=== PATIENT | male | born 1950 | race Caucasian/White ===

== ENCOUNTER 2017-09-21 22:27 | Inpatient (IN) | payer MEDICARE, OTHER ==
[~2017-09-21] VITALS: Ht 180.3 cm; Wt 89.4 kg
[2017-09-21] MEDS ORDERED: CARV6.252 PO (22:43)
[2017-09-21] MEDS ORDERED: METF10002 PO (22:43)
[2017-09-21] MEDS ORDERED: MAG30ORA PO (22:43)
[2017-09-21] MEDS ORDERED: MAGN400O6 PO (22:43)
[2017-09-21] MEDS ORDERED: WARF4TAB6 PO (22:43)
[2017-09-21] MEDS ORDERED: ACET-2154 PO (22:43)
[2017-09-21] MEDS ORDERED: PARO10TA86 PO (22:43)
[2017-09-21] MEDS ORDERED: RISP2TAB23 PO (22:43)
[2017-09-21] MEDS ORDERED: HYDR-3326 PO (22:43)
[2017-09-21] MEDS ORDERED: FAMO20TA8 PO (22:43)
[2017-09-21] MEDS ORDERED: PIOG15TA8 PO (22:43)
[2017-09-21] MEDS ORDERED: HYDROCODONE/APAP 10-325 MG TABLET PO ONE (23:15)
[2017-09-21] MEDS ORDERED: HYDROCODONE/APAP 10-325 MG TABLET ONE (23:42)
[2017-09-21 23:48] LABS: ACETAMINOPHEN 2.7 ug/mL (10-30); ALANINE AMINOTRANSFERASE 25 U/L (16-63); ALKALINE PHOSPHATASE 73 U/L (50-136); ASPARTATE AMINOTRANSFERASE 11 U/L (15-37); BILIRUBIN,DIRECT 0.1 mg/dL (0.0-0.2); BILIRUBIN,TOTAL 0.3 mg/dL (0.2-1.0); CARBON DIOXIDE 26 mmol/L (21-32); CHLORIDE 112 mmol/L (98-107); CREATININE 0.8 mg/dL (0.6-1.3); GLUCOSE 114 mg/dL (74-106); POTASSIUM 3.6 mmol/L (3.5-5.1); TOTAL PROTEIN, SERUM 6.8 g/dL (6.4-8.2); UREA NITROGEN, BLOOD 24 mg/dL (7-18)
[2017-09-22 00:17] LABS: BASOPHILS % (AUTO) 0.5 % (0.0-2.0); EOSINOPHILS # (AUTO) 0.2 K/uL (0.0-0.7); EOSINOPHILS % (AUTO) 2.8 % (0.0-7.0); HEMATOCRIT 41.1 % (40-50); LYMPHOCYTES # (AUTO) 2.4 K/UL (0.8-4.8); LYMPHOCYTES % (AUTO) 31.8 % (20.5-51.5); MEAN CORPUSCULAR HEMOGLOBIN 33.4 UUG (27.0-31.0); MEAN CORPUSCULAR HGB CONC 34 g/dL (32.0-37.0); MEAN CORPUSCULAR VOLUME 97.7 FL (82.0-92.0); MONOCYTES # (AUTO) 0.7 K/UL (0.1-1.30); NEUTROPHILS # (AUTO) 4.4 K/UL (1.8-8.9); NEUTROPHILS % (AUTO) 55.9 % (38.5-71.5); PLATELET COUNT (AUTO) 219 K/UL (150-450); RED BLOOD CELL COUNT(AUTO) 4.21 MIL/UL (4.7-6.1); WHITE BLOOD COUNT (AUTO) 7.7 K/UL (4.0-11.2)
[2017-09-22 00:30] LABS: ETHANOL < 3 MG/DL (0-0)
[2017-09-22 00:37] LABS: *BILIRUBIN,URIN 1+ (NEGATIVE); *BLOOD, URINE Trace-intact (NEGATIVE); *CLARITY,URINE CLEAR (CLEAR); *COLOR,URINE YELLOW (YELLOW); *KETONES,URINE 1+ (NEGATIVE); *PROTEIN,URINE 1+ (NEGATIVE); LEUKOCYTE ESTERASE ,URINE NEGATIVE (NEGATIVE); NITRITE, URINE NEGATIVE (NEGATIVE); PH,URINE 5.5 (5.0-8.0); UGLUCOSE NEGATIVE (NEGATIVE)
[2017-09-22 00:39] LABS: BACTERIA,URINE NONE SEEN /HPF (NONE SEEN); MUCUS,URINE MANY /LPF (0-FEW); SQUAMOUS EPITHELIAL CELL,UR NONE SEEN /HPF (NONE SEEN)
--- NOTE | 2017-09-22 01:30 | NUR ---
Pt. admitted to [facility], under care of Dr. CRONIN Belongs List completed
[2017-09-22] MEDS ORDERED: IV D5 1/2 NS 1000 ML 1,000 ML IV PRN (02:39)
[2017-09-22] MEDS ORDERED: MAG HYDROX/AL HYDROX/SIMETH 30 ML LIQUID UDC PO PRN ×2 (02:45→07:45)
[2017-09-22] MEDS ORDERED: MAGNESIUM HYDROXIDE 30 ML LIQUID UDC PO PRN ×2 (02:45)
[2017-09-22] MEDS ORDERED: ONDANSETRON 4 MG/2 ML VIAL IV PRN (02:45)
[2017-09-22] MEDS ORDERED: ZOLPIDEM 5 MG TABLET PO PRN (02:45)
[2017-09-22] MEDS ORDERED: Z GUARD REMEDY PASTE 57 GM TUBE TOP PRN (02:45)
[2017-09-22] MEDS ORDERED: DEXTROSE 50% 50 ML DISP.SYRIN IV PRN (02:45)
[2017-09-22 04:00] VITALS: BP 121/52
[2017-09-22] MEDS: HYDROCODONE/APAP 5-325MG TABLET PO PRN ×2 (06:05→11:11)
[2017-09-22] MEDS ORDERED: HYDROCODONE/APAP 5-325MG TABLET ONE (06:17)
--- NOTE | 2017-09-22 06:34 | NUR ---
Heplock inserted w/ [id number] on left wrist. IVF D5 1/2 NS started at rate 75 ml/hr.
--- NOTE | 2017-09-22 06:38 | NUR ---
Patient c/o lower back pain, 7/10 pain level. [place] 1 tab po was given. Patient tolerated.
[2017-09-22] MEDS: BLOOD SUGAR DIAGNOSTIC 1 EACH STRIP VI SCH ×4 (07:30→22:10)
--- NOTE | 2017-09-22 07:30 | NUR ---
Received report from night manager nurse. Patient in bed awake, no evidence of distress noted at this time. Bed in low position, side rails up x2.
[2017-09-22] MEDS: CARVEDILOL 6.25 MG TABLET PO SCH ×2 (08:00→17:03)
[2017-09-22] MEDS ORDERED: risperiDONE 2 MG TABLET PO SCH (09:00)
[2017-09-22] MEDS ORDERED: PAROXETINE HCL 10 MG TABLET PO SCH (09:00)
--- NOTE | 2017-09-22 09:00 | NUR ---
Patient found to have pulled out IV with blood dripping on the floor. Patient explained that he pulled it out to go to the bathroom. Reinserted new IV line.
[2017-09-22] MEDS: PIOGLITAZONE HCL 15 MG TABLET PO SCH (09:10)
[2017-09-22] MEDS: FAMOTIDINE 20 MG TABLET PO SCH (09:10)
[2017-09-22 09:55] LABS: *AMPHETAMINE, URINE NEGATIVE (NEGATIVE); *BARBITURATE, URINE NEGATIVE (NEGATIVE); *CANNABINOID, URINE NEGATIVE (NEGATIVE); *COCCAINE, URINE NEGATIVE (NEGATIVE); *OPIATE, URINE POSITIVE (NEGATIVE); *PHENCYCLIDINE SCREEN,URINE NEGATIVE (NEGATIVE)
[2017-09-22 11:01] VITALS: BP 133/89
[2017-09-22 11:59] LABS: ALANINE AMINOTRANSFERASE 23 U/L (16-63); ALKALINE PHOSPHATASE 71 U/L (50-136); ASPARTATE AMINOTRANSFERASE 10 U/L (15-37); BILIRUBIN,TOTAL 0.3 mg/dL (0.2-1.0); CARBON DIOXIDE 25 mmol/L (21-32); CHLORIDE 109 mmol/L (98-107); CREATININE 0.6 mg/dL (0.6-1.3); GLUCOSE 126 mg/dL (74-106); MAGNESIUM 1.6 mg/dL (1.8-2.4); PHOSPHOROUS 3.3 mg/dL (2.5-4.9); POTASSIUM 4.1 mmol/L (3.5-5.1); TOTAL PROTEIN, SERUM 6.6 g/dL (6.4-8.2); UREA NITROGEN, BLOOD 15 mg/dL (7-18)
--- NOTE | 2017-09-22 12:00 | NUR ---
Patient reported that he took the New IV out as the fluids were stopped. He thought that he did not need it anymore. It was explained to patient that the IV is to stay in during duration of the stay in the hospital until discharge even if there are no fluids at the time.
[2017-09-22 12:11] LABS: THYROID STIMULATING HORMONE 2.198 mIU/mL (0.358-3.740)
[2017-09-22 12:16] LABS: BASOPHILS % (AUTO) 0.6 % (0.0-2.0); EOSINOPHILS # (AUTO) 0.2 K/uL (0.0-0.7); EOSINOPHILS % (AUTO) 2.4 % (0.0-7.0); HEMATOCRIT 39.3 % (36.7-47.1); HEMOGLOBIN 13.7 g/dL (12.5-16.3); LYMPHOCYTES # (AUTO) 2.5 K/uL (20.0-40.0); LYMPHOCYTES % (AUTO) 31.8 % (20.5-51.5); MEAN CORPUSCULAR HEMOGLOBIN 34.2 uug (23.8-33.4); MEAN CORPUSCULAR HGB CONC 35 g/dL (32.5-36.3); MONOCYTES # (AUTO) 0.6 K/uL (2.0-10.0); NEUTROPHILS # (AUTO) 4.5 K/uL (1.8-8.9); NEUTROPHILS % (AUTO) 57.2 % (38.5-71.5); PLATELET COUNT (AUTO) 188 K/uL (152-348); RED BLOOD CELL COUNT(AUTO) 4.01 MIL/uL (4.06-5.63); WHITE BLOOD COUNT (AUTO) 7.8 K/uL (3.6-10.2)
[2017-09-22] MEDS ORDERED: MAGNESIUM SULFATE/D5W 100 ML IV SCH (12:30)
[2017-09-22 15:10] VITALS: BP 130/84
[2017-09-22 15:12] VITALS: BP 130/84
[2017-09-22] MEDS: NICOTINE 21 MG/24HR PATCH TD SCH (15:15)
--- NOTE | 2017-09-22 16:00 | NUR ---
agricultural technical officer stopped by the nursing desk to inform staff that he has brought a agricultural education teacher for his ankle tracker. Patient is on house arrest.
[2017-09-22] MEDS: IV 1/2NS 1000 ML 1,000 ML IV PRN (17:01)
[2017-09-22] MEDS: INSULIN REGULAR, HUMAN 300 UNIT/3 ML VIAL SQ PRN ×2 (17:19→22:18)
--- NOTE | 2017-09-22 18:16 | NUR ---
Patient has had two episodes of soiling himself and bedding. All bedding changed, cleaned and patient advised to wear an adult brief. No evidence of distress noted at this time. Bed in low position, side rails up x2.
[2017-09-22] MEDS: ACETAMINOPHEN 325 MG TABLET PO PRN (18:58)
--- NOTE | 2017-09-22 19:52 | NUR ---
PATIENT INTERMITTENTLY SLEEPING ON BED. EASILY AWAKE ON VERBAL STIMULI. NO DISTRESS NOTED. WILL CONTINUE TO MONITOR
[2017-09-22 20:00] VITALS: BP 141/73
[2017-09-22] MEDS: risperiDONE 1 MG/ML UDC PO SCH (22:10)
[2017-09-23] MEDS: IV 1/2NS 1000 ML 1,000 ML IV PRN ×2 (02:50→23:48)
[2017-09-23 04:49] VITALS: BP 118/63
[2017-09-23] MEDS: ACETAMINOPHEN 325 MG TABLET PO PRN ×3 (06:16→20:07)
[2017-09-23] MEDS: BLOOD SUGAR DIAGNOSTIC 1 EACH STRIP VI SCH ×5 (06:17→21:09)
[2017-09-23 06:45] LABS: BASOPHILS % (AUTO) 0.5 % (0.0-2.0); EOSINOPHILS # (AUTO) 0.2 K/uL (0.0-0.7); EOSINOPHILS % (AUTO) 3.1 % (0.0-7.0); HEMATOCRIT 41.3 % (36.7-47.1); LYMPHOCYTES # (AUTO) 2.3 K/uL (20.0-40.0); LYMPHOCYTES % (AUTO) 31.9 % (20.5-51.5); MEAN CORPUSCULAR HEMOGLOBIN 33.3 uug (23.8-33.4); MEAN CORPUSCULAR HGB CONC 34 g/dL (32.5-36.3); MEAN CORPUSCULAR VOLUME 98.1 fL (73.0-96.2); MONOCYTES # (AUTO) 0.6 K/uL (2.0-10.0); MONOCYTES % (AUTO) 8.3 % (0.0-11.0); NEUTROPHILS # (AUTO) 4.1 K/uL (1.8-8.9); NEUTROPHILS % (AUTO) 56.2 % (38.5-71.5); PLATELET COUNT (AUTO) 183 K/uL (152-348); RED BLOOD CELL COUNT(AUTO) 4.21 MIL/uL (4.06-5.63); WHITE BLOOD COUNT (AUTO) 7.3 K/uL (3.6-10.2)
--- NOTE | 2017-09-23 07:30 | NUR ---
Received report from chisel grinder nurse, patient in bed awake, no evidence of distress noted at this time. Bed in low position, side rails up x2.
[2017-09-23 08:07] LABS: ALANINE AMINOTRANSFERASE 24 U/L (16-63); ALKALINE PHOSPHATASE 63 U/L (50-136); AMYLASE 23 U/L (25-115); ASPARTATE AMINOTRANSFERASE 9 U/L (15-37); BILIRUBIN,TOTAL 0.4 mg/dL (0.2-1.0); CARBON DIOXIDE 24 mmol/L (21-32); CHLORIDE 108 mmol/L (98-107); CHOLESTEROL 138 mg/dL (<200); CREATININE 0.6 mg/dL (0.6-1.3); GLUCOSE 130 mg/dL (74-106); HDL CHOLESTEROL 30 mg/dL (40-60); MAGNESIUM 1.7 mg/dL (1.8-2.4); PHOSPHOROUS 3.2 mg/dL (2.5-4.9); POTASSIUM 3.7 mmol/L (3.5-5.1); TOTAL PROTEIN, SERUM 6.7 g/dL (6.4-8.2); TRIGLYCERIDES 109 MG/DL (30-150); UREA NITROGEN, BLOOD 10 mg/dL (7-18)
[2017-09-23] MEDS: NICOTINE 21 MG/24HR PATCH TD SCH (08:15)
[2017-09-23] MEDS: PIOGLITAZONE HCL 15 MG TABLET PO SCH (08:15)
[2017-09-23] MEDS: FAMOTIDINE 20 MG TABLET PO SCH (08:15)
[2017-09-23] MEDS: PAROXETINE HCL 20 MG TABLET PO SCH (08:15)
[2017-09-23] MEDS: CARVEDILOL 6.25 MG TABLET PO SCH ×2 (08:16→18:22)
[2017-09-23] MEDS: HYDROCODONE/APAP 5-325MG TABLET PO PRN (08:35)
[2017-09-23] MEDS: risperiDONE 1 MG/ML UDC PO SCH ×2 (08:35→20:06)
[2017-09-23 08:41] LABS: IRON, SERUM 77 ug/dL (50-175)
[2017-09-23] MEDS ORDERED: PAROXETINE HCL 10 MG TABLET PO SCH (09:00)
[2017-09-23 09:05] LABS: LIPASE 72 U/L (73-393)
[2017-09-23] MEDS ORDERED: MAGNESIUM SULFATE/D5W 100 ML IV SCH (10:45)
[2017-09-23 10:56] LABS: THYROID STIMULATING HORMONE 2.309 mIU/mL (0.358-3.740)
[2017-09-23] MEDS: FOLIC ACID 1 MG TABLET PO SCH (11:53)
[2017-09-23 11:54] VITALS: BP 113/72
[2017-09-23] MEDS: INSULIN REGULAR, HUMAN 300 UNIT/3 ML VIAL SQ PRN (12:36)
[2017-09-23] MEDS: CEFTRIAXONE 1 G in IV DEXTROSE 5% 50 ML IV SCH (15:00)
[2017-09-23 15:44] VITALS: BP 138/67
--- NOTE | 2017-09-23 18:48 | NUR ---
Notified that patient had taken out iv that was secured with a wrap and double tape. Slight bruising noted on left arm. No evidence of distress noted, bed in low position, side rails up x2. All needs met.
--- NOTE | 2017-09-23 19:00 | NUR ---
RECD PT IN BED, NO SSX OF DISTRESS NOTED, VERBALLY RESPONSIVE,IV SITE ON LEFT F/A INTACT W/ IV INFUSING WELL.
[2017-09-23 20:00] VITALS: BP 125/72
--- NOTE | 2017-09-23 20:07 | NUR ---
PT C/O GEN PAIN ,TYLENOL 650 MG GIVEN AND RELIEF AFFORDED, SLEPT ON AND OFF.VOIDED FREELY WELL USING URINAL.
[2017-09-24 05:14] VITALS: BP 120/72
[2017-09-24 05:18] VITALS: BP 120/72
[2017-09-24] MEDS: ACETAMINOPHEN 325 MG TABLET PO PRN (05:56)
--- NOTE | 2017-09-24 06:01 | NUR ---
HAD A QUIET NITE, SLEPT AT LONG INTERVALS.NO DIABETIC CRISIS NOTED.AFEBRILE THRU OUT THE SHIFT.
--- NOTE | 2017-09-24 07:25 | NUR ---
RECEIVED REPORT FROM INSURANCE DEFENSE ATTORNEY NURSE, PATIENT IN BED ASLEEP, NO EVIDENCE OF DISTRESS NOTED, BED IN LOW POSITION, SIDE RAILS UP X2.
[2017-09-24 08:04] LABS: ALANINE AMINOTRANSFERASE 22 U/L (16-63); ALKALINE PHOSPHATASE 71 U/L (50-136); ASPARTATE AMINOTRANSFERASE 11 U/L (15-37); BASOPHILS % (AUTO) 0.6 % (0.0-2.0); BILIRUBIN,TOTAL 0.5 mg/dL (0.2-1.0); CARBON DIOXIDE 24 mmol/L (21-32); CHLORIDE 107 mmol/L (98-107); CREATININE 0.5 mg/dL (0.6-1.3); EOSINOPHILS # (AUTO) 0.2 K/uL (0.0-0.7); EOSINOPHILS % (AUTO) 2.1 % (0.0-7.0); GLUCOSE 146 mg/dL (74-106); HEMATOCRIT 41.7 % (36.7-47.1); HEMOGLOBIN 14.6 g/dL (12.5-16.3); LYMPHOCYTES # (AUTO) 2.1 K/uL (20.0-40.0); LYMPHOCYTES % (AUTO) 25.2 % (20.5-51.5); MAGNESIUM 1.8 mg/dL (1.8-2.4); MEAN CORPUSCULAR HEMOGLOBIN 34.2 uug (23.8-33.4); MEAN CORPUSCULAR HGB CONC 35 g/dL (32.5-36.3); MEAN CORPUSCULAR VOLUME 97.7 fL (73.0-96.2); MONOCYTES # (AUTO) 0.7 K/uL (2.0-10.0); MONOCYTES % (AUTO) 7.8 % (0.0-11.0); NEUTROPHILS # (AUTO) 5.4 K/uL (1.8-8.9); NEUTROPHILS % (AUTO) 64.3 % (38.5-71.5); PHOSPHOROUS 2.9 mg/dL (2.5-4.9); PLATELET COUNT (AUTO) 192 K/uL (152-348); RED BLOOD CELL COUNT(AUTO) 4.27 MIL/uL (4.06-5.63); TOTAL PROTEIN, SERUM 6.8 g/dL (6.4-8.2); UREA NITROGEN, BLOOD 8 mg/dL (7-18); WHITE BLOOD COUNT (AUTO) 8.4 K/uL (3.6-10.2)
[2017-09-24] MEDS: FOLIC ACID 1 MG TABLET PO SCH (08:43)
[2017-09-24] MEDS: PAROXETINE HCL 20 MG TABLET PO SCH (08:43)
[2017-09-24] MEDS: FAMOTIDINE 20 MG TABLET PO SCH (08:43)
[2017-09-24] MEDS: PIOGLITAZONE HCL 15 MG TABLET PO SCH (08:43)
[2017-09-24] MEDS: risperiDONE 1 MG/ML UDC PO SCH ×2 (08:43→21:25)
[2017-09-24] MEDS: HYDROCODONE/APAP 5-325MG TABLET PO PRN (08:43)
[2017-09-24] MEDS: NICOTINE 21 MG/24HR PATCH TD SCH (08:44)
[2017-09-24] MEDS: CARVEDILOL 6.25 MG TABLET PO SCH ×2 (08:47→17:27)
[2017-09-24 11:06] VITALS: BP 118/68
[2017-09-24] MEDS: BLOOD SUGAR DIAGNOSTIC 1 EACH STRIP VI SCH ×3 (11:55→21:24)
[2017-09-24] MEDS: INSULIN REGULAR, HUMAN 300 UNIT/3 ML VIAL SQ PRN ×2 (12:45→21:22)
[2017-09-24] MEDS: CEFTRIAXONE 1 G in IV DEXTROSE 5% 50 ML IV SCH (15:14)
[2017-09-24] MEDS: IV 1/2NS 1000 ML 1,000 ML IV PRN (15:14)
[2017-09-24 15:58] VITALS: BP 123/71
--- NOTE | 2017-09-24 19:00 | NUR ---
PATIENT IN BED AWAKE, REPORTING BACK PAIN. BED IN LOW POSITION, SIDE RAILS UP X2. PATIENT TOLERATED SHOWER TODAY.
[2017-09-24 20:00] VITALS: BP 122/71
--- NOTE | 2017-09-24 23:00 | NUR ---
Endorsed patient from CIERRA Beck. Patient is asleep at the moment. No signs of distress noted. BRP. Room is kept clutter free. Bed is in low and locked position. Will continue to monitor.
[2017-09-25 04:51] VITALS: BP 115/73
--- NOTE | 2017-09-25 06:03 | NUR ---
No changes w/t shift. Patient slept t/o shift. No c/o back pain. All meds given as ordered. All needs met. Safety and comfort measures maintained t/o shift.
[2017-09-25] MEDS: IV 1/2NS 1000 ML 1,000 ML IV PRN (06:23)
[2017-09-25] MEDS: BLOOD SUGAR DIAGNOSTIC 1 EACH STRIP VI SCH ×2 (06:35→12:04)
[2017-09-25 07:16] LABS: BASOPHILS % (AUTO) 0.4 % (0.0-2.0); EOSINOPHILS # (AUTO) 0.2 K/uL (0.0-0.7); EOSINOPHILS % (AUTO) 2.7 % (0.0-7.0); HEMATOCRIT 42.5 % (40-50); HEMOGLOBIN 14.1 G/DL (14.0-18.0); LYMPHOCYTES # (AUTO) 2.2 K/UL (0.8-4.8); MEAN CORPUSCULAR HEMOGLOBIN 32.6 UUG (27.0-31.0); MEAN CORPUSCULAR HGB CONC 33 g/dL (32.0-37.0); MEAN CORPUSCULAR VOLUME 97.7 FL (82.0-92.0); MONOCYTES # (AUTO) 0.7 K/UL (0.1-1.30); NEUTROPHILS # (AUTO) 5.3 K/UL (1.8-8.9); NEUTROPHILS % (AUTO) 62.9 % (38.5-71.5); PLATELET COUNT (AUTO) 209 K/UL (150-450); RED BLOOD CELL COUNT(AUTO) 4.34 MIL/UL (4.7-6.1); WHITE BLOOD COUNT (AUTO) 8.4 K/UL (4.0-11.2)
--- NOTE | 2017-09-25 07:20 | NUR ---
RECEIVED REPORT FROM EXCELSIOR MACHINE FEEDER NURSE, PATIENT IN BED ASLEEP, NO EVIDENCE OF DISTRESS NOTED. BED IN LOW POSITION, SIDE RAILS UP X2.
[2017-09-25 07:27] LABS: ALANINE AMINOTRANSFERASE 23 U/L (16-63); ALKALINE PHOSPHATASE 71 U/L (50-136); ASPARTATE AMINOTRANSFERASE 11 U/L (15-37); BILIRUBIN,TOTAL 0.5 mg/dL (0.2-1.0); CARBON DIOXIDE 25 mmol/L (21-32); CHLORIDE 108 mmol/L (98-107); CREATININE 0.6 mg/dL (0.6-1.3); GLUCOSE 129 mg/dL (74-106); MAGNESIUM 1.7 mg/dL (1.8-2.4); PHOSPHOROUS 2.7 mg/dL (2.5-4.9); POTASSIUM 3.8 mmol/L (3.5-5.1); TOTAL PROTEIN, SERUM 6.8 g/dL (6.4-8.2); UREA NITROGEN, BLOOD 10 mg/dL (7-18)
[2017-09-25] MEDS: PAROXETINE HCL 20 MG TABLET PO SCH (08:23)
[2017-09-25] MEDS: FOLIC ACID 1 MG TABLET PO SCH (08:23)
[2017-09-25] MEDS: CARVEDILOL 6.25 MG TABLET PO SCH (08:23)
[2017-09-25] MEDS: PIOGLITAZONE HCL 15 MG TABLET PO SCH (08:23)
[2017-09-25] MEDS: risperiDONE 1 MG/ML UDC PO SCH (08:23)
[2017-09-25] MEDS: FAMOTIDINE 20 MG TABLET PO SCH (08:23)
[2017-09-25] MEDS: NICOTINE 21 MG/24HR PATCH TD SCH (08:24)
[2017-09-25] MEDS: HYDROCODONE/APAP 5-325MG TABLET PO PRN (09:02)
[2017-09-25] MEDS ORDERED: MAGNESIUM SULFATE/D5W 100 ML IV SCH (09:15)
[2017-09-25 11:57] VITALS: BP 124/63
[2017-09-25] MEDS: INSULIN REGULAR, HUMAN 300 UNIT/3 ML VIAL SQ PRN (12:21)
[2017-09-25] MEDS ORDERED: HYDR-3326 PO (12:26)
[2017-09-25] MEDS ORDERED: NICO1PAT28 TD (12:26)
[2017-09-25] MEDS ORDERED: INSU100V28 SQ (12:26)
[2017-09-25] MEDS ORDERED: FAMO20TA8 PO (12:26)
[2017-09-25] MEDS ORDERED: FOLI1TAB16 PO (12:26)
[2017-09-25] MEDS ORDERED: Blood Sugar Diagnostic VI (12:26)
[2017-09-25] MEDS ORDERED: ACET325T53 PO (12:26)
[2017-09-25] MEDS ORDERED: PARO20TA7 PO (12:26)
[2017-09-25] MEDS ORDERED: ZOLP5TAB8 PO (12:26)
[2017-09-25] MEDS ORDERED: CARV6.252 PO (12:26)
[2017-09-25] MEDS ORDERED: CEPH500C2 PO (12:26)
[2017-09-25] MEDS ORDERED: PIOG15TA8 PO (12:26)
[2017-09-25] MEDS ORDERED: MAG30ORA PO (12:26)
[2017-09-25] MEDS ORDERED: RISP1SOL PO (12:26)
[2017-09-25] MEDS ORDERED: CEPHALEXIN MONOHYDRATE 500 MG CAPSULE PO SCH (14:00)
[2017-09-25] MEDS: ACETAMINOPHEN 325 MG TABLET PO PRN (15:09)
[2017-09-25 15:46] VITALS: BP 126/66
--- NOTE | 2017-09-25 17:40 | NUR ---
Report was called to accepting facility, and to PO officer. Education provided, IV removed, and all needs were met. Patient declined to have flu and pneumonia shot. All belongings accounted for and patient was in no distress during the transfer to [facility].
== END 2017-09-25 17:49 | DRG 690 ==
LOC: ER 22:28 → MED 09-22 00:10
PROVIDERS: ADMIT Internal Medicine; ATTEND Internal Medicine
DX: N39.0 Urinary tract infection, site not specified (principal); E44.0 Moderate protein-calorie malnutrition; E87.0 Hyperosmolality and hypernatremia; D68.9 Coagulation defect, unspecified; E83.42 Hypomagnesemia; E83.51 Hypocalcemia; I48.91 Unspecified atrial fibrillation; F25.9 Schizoaffective disorder, unspecified; I36.1 Nonrheumatic tricuspid (valve) insufficiency; I45.2 Bifascicular block; E11.9 Type 2 diabetes mellitus without complications; F17.210 Nicotine dependence, cigarettes, uncomplicated; G89.4 Chronic pain syndrome; Z79.01 Long term (current) use of anticoagulants; Z87.440 Personal history of urinary (tract) infections; I10 Essential (primary) hypertension; Z86.19 Personal history of other infectious and parasitic diseases; M19.90 Unspecified osteoarthritis, unspecified site; F32.9 Major depressive disorder, single episode, unspecified; F41.9 Anxiety disorder, unspecified; R53.1 Weakness; E53.8 Deficiency of other specified B group vitamins; F10.21 Alcohol dependence, in remission; Z68.27 Body mass index [BMI] 27.0-27.9, adult; I34.0 Nonrheumatic mitral (valve) insufficiency; F29 Unspecified psychosis not due to a substance or known physiological condition; E78.00 Pure hypercholesterolemia, unspecified
CPT/HCPCS: 36415; 71010; 80307; 82746; 83550; 83690; 83735; 84100; 84443; 85025; 85610; 85730; 87086; 93005; 93307; A4663; G0480; G0480-TC; J0696; J1815; J3475; J3490; J7060

== ENCOUNTER 2017-10-17 19:56 | Inpatient (IN) | payer MEDICARE, OTHER ==
[~2017-10-17] VITALS: Ht 180.3 cm; Wt 87.5 kg
[~2017-10-17 19:56] MED LIST: ACET325T53 PO; Blood Sugar Diagnostic VI; CARV6.252 PO; CEPH500C2 PO; FAMO20TA8 PO; FOLI1TAB16 PO; HYDR-3326 PO; INSU100V28 SQ; MAG30ORA PO; MAGN400O6 PO; NICO1PAT28 TD; PARO20TA7 PO; PIOG15TA8 PO; RISP1SOL PO; WARF4TAB6 PO; ZOLP5TAB8 PO
[2017-10-17] MEDS ORDERED: ACETAMINOPHEN ES 500 MG TABLET PO ONE (20:15)
[2017-10-17 20:19] LABS: *BILIRUBIN,URIN NEGATIVE (NEGATIVE); *BLOOD, URINE NEGATIVE (NEGATIVE); *CLARITY,URINE CLEAR (CLEAR); *COLOR,URINE YELLOW (YELLOW); *KETONES,URINE NEGATIVE (NEGATIVE); *PROTEIN,URINE NEGATIVE (NEGATIVE); *UROBILINOGEN,URINE 0.2 E.U./dl (NORMAL); LEUKOCYTE ESTERASE ,URINE NEGATIVE (NEGATIVE); NITRITE, URINE NEGATIVE (NEGATIVE); PH,URINE 5.5 (5.0-8.0); UGLUCOSE NEGATIVE (NEGATIVE)
[2017-10-17 20:20] LABS: RBC,URINE 0-3 /HPF (0-3); WBC,URINE 0-3 /HPF (0-3)
[2017-10-17 20:21] LABS: BACTERIA,URINE FEW /HPF (NONE SEEN); SQUAMOUS EPITHELIAL CELL,UR FEW /HPF (NONE SEEN)
--- NOTE | 2017-10-17 20:24 | NUR ---
Patient BIB private ambulance from [facility] for Medical Clearance and GPS admission. Patient arrives A/O x3, ambulatory, in no distress, c/o chronic arthritic back pain. Patient arrives on 5150 hold for DTS. Per hold, patient has history of command auditory hallucinations which today, he states, are telling him to kill himself. Patient to room 5A. No 1:1 sitter available at this time per Nursing Cafe Attendant, Security contacted to remain at bedside due to patient's elopement risk and SI precautions.
[2017-10-17] MEDS ORDERED: BISA10SU61 RC (20:30)
[2017-10-17] MEDS ORDERED: NA P133E RC (20:30)
[2017-10-17] MEDS ORDERED: CRAN300T PO (20:30)
[2017-10-17] MEDS ORDERED: PIOG15TA8 PO (20:30)
[2017-10-17 20:31] LABS: *AMPHETAMINE, URINE NEGATIVE (NEGATIVE); *BARBITURATE, URINE NEGATIVE (NEGATIVE); *CANNABINOID, URINE NEGATIVE (NEGATIVE); *COCCAINE, URINE NEGATIVE (NEGATIVE); *OPIATE, URINE NEGATIVE (NEGATIVE); *PHENCYCLIDINE SCREEN,URINE NEGATIVE (NEGATIVE)
[2017-10-17] MEDS ORDERED: ACETAMINOPHEN ES 500 MG TABLET ONE (20:31)
[2017-10-17 20:55] LABS: BASOPHILS % (AUTO) 0.6 % (0.0-2.0); EOSINOPHILS # (AUTO) 0.3 K/uL (0.0-0.7); EOSINOPHILS % (AUTO) 3.6 % (0.0-7.0); HEMATOCRIT 41.4 % (36.7-47.1); HEMOGLOBIN 14.1 g/dL (12.5-16.3); LYMPHOCYTES # (AUTO) 2.8 K/uL (20.0-40.0); LYMPHOCYTES % (AUTO) 37.6 % (20.5-51.5); MEAN CORPUSCULAR HEMOGLOBIN 33.6 uug (23.8-33.4); MEAN CORPUSCULAR HGB CONC 34 g/dL (32.5-36.3); MEAN CORPUSCULAR VOLUME 98.7 fL (73.0-96.2); MONOCYTES # (AUTO) 0.5 K/uL (2.0-10.0); MONOCYTES % (AUTO) 7.4 % (0.0-11.0); NEUTROPHILS # (AUTO) 3.7 K/uL (1.8-8.9); NEUTROPHILS % (AUTO) 50.8 % (38.5-71.5); PLATELET COUNT (AUTO) 200 K/uL (152-348); WHITE BLOOD COUNT (AUTO) 7.3 K/uL (3.6-10.2)
[2017-10-17 21:11] LABS: ALANINE AMINOTRANSFERASE 27 U/L (16-63); ALKALINE PHOSPHATASE 85 U/L (50-136); ASPARTATE AMINOTRANSFERASE 15 U/L (15-37); BILIRUBIN,DIRECT 0.1 mg/dL (0.0-0.2); BILIRUBIN,TOTAL 0.4 mg/dL (0.2-1.0); CARBON DIOXIDE 27 mmol/L (21-32); CHLORIDE 108 mmol/L (98-107); CREATININE 0.8 mg/dL (0.6-1.3); GLUCOSE 149 mg/dL (74-106); POTASSIUM 3.8 mmol/L (3.5-5.1); TOTAL PROTEIN, SERUM 6.9 g/dL (6.4-8.2); UREA NITROGEN, BLOOD 22 mg/dL (7-18)
[2017-10-17 21:14] LABS: ETHANOL < 3 MG/DL (0-0)
[2017-10-17 21:19] LABS: THYROID STIMULATING HORMONE 2.023 mIU/mL (0.358-3.740)
--- NOTE | 2017-10-17 21:49 | NUR ---
Pt. admitted to GPS, under care of Dr. Torres Belongs List completed
[2017-10-17 22:00] VITALS: BP 113/70
[2017-10-17] MEDS ORDERED: MAG HYDROX/AL HYDROX/SIMETH 30 ML LIQUID UDC PO PRN (22:00)
[2017-10-17] MEDS ORDERED: CLONAZEPAM 0.5 MG TABLET PO PRN (22:00)
[2017-10-17] MEDS ORDERED: MAGNESIUM HYDROXIDE 30 ML LIQUID UDC PO PRN (22:00)
[2017-10-17] MEDS ORDERED: RISP2TAB23 PO (22:24)
[2017-10-17] MEDS ORDERED: ACETAMINOPHEN 325 MG TABLET ONE (22:27)
--- NOTE | 2017-10-17 23:00 | NUR ---
received to care, from the emergency room, a resident of [facility], on a 72 hour hold, for danger to self. according to the hold, and the patient, he has been having auditory command style hallucinations for a while, which he says makes it difficult to sleep at times. but today the voices told him that "today is a good day to ". pt is aware the voices are not real, and wants to get help to make them stop. upon arrival on the unit, he was calm and cooperative. blood sugar was checked, and it was 138, at bedtime. as of 2300, he appears to be asleep. no distress noted. will continue to monitor closely.
--- NOTE | 2017-10-17 23:00 | NUR ---
addendum/ pt admits to hearing voices telling him to kill himself, but denies SI, or desire to harm self. pt agrees to contract for safety, while in the hospital.
[2017-10-18] MEDS: TEMAZEPAM 7.5 MG CAPSULE PO PRN (00:41)
[2017-10-18] MEDS ORDERED: TEMAZEPAM 7.5 MG CAPSULE ONE (00:54)
[2017-10-18] MEDS ORDERED: INSULIN REGULAR, HUMAN 300 UNIT/3 ML VIAL SQ PRN (01:45)
[2017-10-18] MEDS ORDERED: ACETAMINOPHEN 325 MG TABLET PO PRN (01:45)
[2017-10-18] MEDS ORDERED: BISACODYL 10 MG SUPP.RECT RC SCH (01:45)
[2017-10-18] MEDS: ACETAMINOPHEN 325 MG TABLET PO PRN ×3 (02:21→17:36)
[2017-10-18] MEDS: BLOOD SUGAR DIAGNOSTIC 1 EACH STRIP VI SCH ×4 (06:16→20:41)
[2017-10-18] MEDS: HYDROCODONE/APAP 5-325MG TABLET PO PRN ×2 (06:24→20:42)
--- NOTE | 2017-10-18 06:24 | NUR ---
slept 5.0 hours, total. PRN norco given at this time, for 8/10 pain, to lower back.
[2017-10-18] MEDS ORDERED: HYDROCODONE/APAP 5-325MG TABLET ONE (06:36)
[2017-10-18 07:30] VITALS: BP 107/64
[2017-10-18] MEDS ORDERED: WARFARIN SODIUM 4 MG TABLET PO SCH (09:00)
[2017-10-18] MEDS: FOLIC ACID 1 MG TABLET PO SCH (09:13)
[2017-10-18] MEDS: NICOTINE 21 MG/24HR PATCH TD SCH (09:13)
[2017-10-18] MEDS: FAMOTIDINE 20 MG TABLET PO SCH (09:13)
[2017-10-18] MEDS: risperiDONE 2 MG TABLET PO SCH ×2 (13:10→20:42)
[2017-10-18] MEDS: BENZTROPINE MESYLATE 0.5 MG TABLET PO SCH ×2 (13:10→17:36)
[2017-10-18] MEDS: DULOXETINE 30 MG CAPSULE.DR PO SCH (13:10)
--- NOTE | 2017-10-18 14:24 | NUR ---
Firearms Report: Local Driver completed and submitted [employer]arms report on 10/18/17.
[2017-10-18 15:14] VITALS: BP 141/82
[2017-10-18] MEDS: WARFARIN SODIUM 4 MG TABLET PO SCH (17:38)
[2017-10-18] MEDS: WARFARIN SODIUM 1 MG TABLET PO SCH (17:38)
[2017-10-18 19:46] VITALS: BP 105/57
[2017-10-18] MEDS: PIOGLITAZONE HCL 15 MG TABLET PO SCH (20:41)
--- NOTE | 2017-10-18 21:00 | NUR ---
Adolph Patton, who identified himself as the patients field artillery officer, stated that his ankle bracelet needs to be recharged, and that somebody would come from his office, tomorrow. to recharge it. he requested that somebody notify him, when pt is transfered or discharged from the hospital, his number is [phone] e mail [email or web address]
--- NOTE | 2017-10-18 22:00 | NUR ---
received to care, lying in bed, isolative, but pleasant upon approach. denies hearing voices, or feeling suicidal, but appears distracted by internal stimuli, at times, when engaged. PRN norco given for 8/10 lower back pain, at 2041. as of 2199, he appears to be asleep. no distress noted. will continue to monitor closely.
[2017-10-19] MEDS: ACETAMINOPHEN 325 MG TABLET PO PRN ×2 (02:52→20:17)
[2017-10-19] MEDS: HYDROCODONE/APAP 5-325MG TABLET PO PRN ×2 (05:50→17:36)
--- NOTE | 2017-10-19 06:00 | NUR ---
slept 7.5 hours
[2017-10-19] MEDS: BLOOD SUGAR DIAGNOSTIC 1 EACH STRIP VI SCH ×4 (06:11→20:25)
[2017-10-19 08:00] VITALS: BP 126/85
[2017-10-19] MEDS: FOLIC ACID 1 MG TABLET PO SCH (08:40)
[2017-10-19] MEDS: NICOTINE 21 MG/24HR PATCH TD SCH (08:40)
[2017-10-19] MEDS: BENZTROPINE MESYLATE 0.5 MG TABLET PO SCH ×2 (08:41→17:26)
[2017-10-19] MEDS: FAMOTIDINE 20 MG TABLET PO SCH (08:41)
[2017-10-19] MEDS: DULOXETINE 30 MG CAPSULE.DR PO SCH (08:41)
[2017-10-19] MEDS: risperiDONE 2 MG TABLET PO SCH ×2 (08:46→20:17)
--- NOTE | 2017-10-19 10:50 | NUR ---
Initial Discharge Instructions: Pt currently resides at [facility] [[address] [place] [address]; [phone]]. Per pt he would like to return to his previous assisted living facility in [facility]. Spoke to Tim at [facility] ([phone]), who states they are willing to accept patient back for some time and will help him transition back to the pt's SHRUTHI. Manager Labor Relations will speak with pt and MD regarding appropriate discharge plans. SW will form a safe and proper discharge.
[2017-10-19] MEDS ORDERED: DEXTROSE 50% 50 ML DISP.SYRIN IV PRN ×2 (17:00→18:45)
[2017-10-19 17:09] VITALS: BP 119/75
[2017-10-19] MEDS: WARFARIN SODIUM 1 MG TABLET PO SCH (17:30)
[2017-10-19] MEDS: WARFARIN SODIUM 4 MG TABLET PO SCH (17:32)
[2017-10-19] MEDS: INSULIN REGULAR, HUMAN 300 UNIT/3 ML VIAL SQ PRN (17:38)
[2017-10-19] MEDS ORDERED: MAGNESIUM HYDROXIDE 30 ML LIQUID UDC PO PRN (18:45)
[2017-10-19] MEDS ORDERED: INSULIN REGULAR, HUMAN 300 UNIT/3 ML VIAL SQ PRN (18:45)
[2017-10-19] MEDS ORDERED: MAG HYDROX/AL HYDROX/SIMETH 30 ML LIQUID UDC PO PRN (18:45)
[2017-10-19] MEDS ORDERED: ZOLPIDEM 5 MG TABLET PO PRN (18:45)
[2017-10-19 19:41] VITALS: BP 110/69
[2017-10-19] MEDS: PIOGLITAZONE HCL 15 MG TABLET PO SCH (20:17)
[2017-10-19] MEDS ORDERED: BLOOD SUGAR DIAGNOSTIC 1 EACH STRIP VI SCH (21:00)
--- NOTE | 2017-10-19 22:00 | NUR ---
received to care, lying in bed, isolative, but pleasant upon approach. no interactions with peers. compliant with medications and staff direction. PRN tylenol given at 2016 for lower back pain 06/15. as of 2199, he appears to be asleep. no distress noted. will continue to monitor closely.
[2017-10-20] MEDS: BLOOD SUGAR DIAGNOSTIC 1 EACH STRIP VI SCH ×4 (06:44→20:43)
[2017-10-20] MEDS: ACETAMINOPHEN 325 MG TABLET PO PRN ×4 (06:45→15:44)
--- NOTE | 2017-10-20 06:45 | NUR ---
slept 8.45 hours. prn TYLENOL given for lower back pain 06/15.
[2017-10-20 07:30] VITALS: BP 103/60
[2017-10-20] MEDS ORDERED: FLEET ENEMA 133 ML BOTTLE RC PRN (09:00)
[2017-10-20] MEDS: INSULIN REGULAR, HUMAN 300 UNIT/3 ML VIAL SQ PRN ×2 (09:01→16:53)
[2017-10-20] MEDS: NICOTINE 21 MG/24HR PATCH TD SCH (09:02)
[2017-10-20] MEDS: risperiDONE 2 MG TABLET PO SCH ×2 (09:02→20:31)
[2017-10-20] MEDS: FOLIC ACID 1 MG TABLET PO SCH (09:02)
[2017-10-20] MEDS: FAMOTIDINE 20 MG TABLET PO SCH (09:03)
[2017-10-20] MEDS: DULOXETINE 30 MG CAPSULE.DR PO SCH (09:03)
[2017-10-20] MEDS: BENZTROPINE MESYLATE 0.5 MG TABLET PO SCH ×2 (09:08→16:50)
[2017-10-20 15:00] VITALS: BP 105/68
[2017-10-20] MEDS: WARFARIN SODIUM 4 MG TABLET PO SCH (16:52)
[2017-10-20] MEDS: WARFARIN SODIUM 1 MG TABLET PO SCH (16:52)
[2017-10-20 20:00] VITALS: BP 102/72
[2017-10-20] MEDS: PIOGLITAZONE HCL 15 MG TABLET PO SCH (20:31)
[2017-10-20] MEDS: HYDROCODONE/APAP 5-325MG TABLET PO PRN (21:41)
--- NOTE | 2017-10-21 03:51 | NUR ---
GPS/NSG Patient first observed awake in room lying in bed with disheveled, unkempt appearance. Patient admitted to having active suicidal ideation without a specific plan. Patient stated he was hearing voices and that the voices were telling him this was a good day to kill himself.
[2017-10-21] MEDS: ACETAMINOPHEN 325 MG TABLET PO PRN ×2 (04:21→14:41)
--- NOTE | 2017-10-21 05:37 | NUR ---
RECEIVED Pt AWAKE IN BED. A+Ox2, POOR INSIGHT INTO REASON FOR ADMISSION AND HOSPITALIZATION. Pt STATED, "I DON'T KNOW" WHEN ASKED WHAT BROUGHT HIM TO THE HOSPITAL. Pt INITIALLY DENIED ANY SI, BUT UPON FURTHER QUESTIONING, Pt STATED HE DOES "SOMETIMES" HEAR VOICES, THE LAST TIME BEING "A FEW DAYS AGO". Pt SPONTANEOUSLY STATED TO OTHER RN, "THE VOICES ARE TELLING ME IT'S A GOOD DAY TO ." Pt UNRELIABLE FOR SAFETY AT THIS TIME, REMAINS ON Q 15 HEAD CHECKS. Pt EXHIBITS PRESSURED SPEECH AND FLAT AFFECT. Pt REMAINS SECLUSIVE TO HIS ROOM AND ISOLATIVE TO HIMSELF, APPEARS INTERNALLY PREOCCUPIED AND CIRCUMSTANTIAL IN THOUGHT PROCESS. FOCUSED ON HIS BACK PAIN, MEDICATED EFFECTIVELY PRN WITH TYLENOL AND NORCO. Pt COMPLIANT WITH MEDS AND COOPERATIVE WITH STAFF DIRECTION. HS BG 105, NO COVERAGE PER SS. NO AGGRESSIVE OR COMBATIVE BEHAVIORS. WILL CONTINUE TO FREQUENTLY MONITOR.
--- NOTE | 2017-10-21 06:34 | NUR ---
AM BG 107
[2017-10-21] MEDS: BLOOD SUGAR DIAGNOSTIC 1 EACH STRIP VI SCH ×4 (06:46→20:30)
[2017-10-21 07:30] VITALS: BP 99/68
[2017-10-21] MEDS: BENZTROPINE MESYLATE 0.5 MG TABLET PO SCH ×2 (08:28→17:58)
[2017-10-21] MEDS: risperiDONE 2 MG TABLET PO SCH ×2 (08:28→21:45)
[2017-10-21] MEDS: FAMOTIDINE 20 MG TABLET PO SCH (08:28)
[2017-10-21] MEDS: NICOTINE 21 MG/24HR PATCH TD SCH (08:28)
[2017-10-21] MEDS: DULOXETINE 30 MG CAPSULE.DR PO SCH (08:28)
[2017-10-21] MEDS: HYDROCODONE/APAP 5-325MG TABLET PO PRN ×2 (08:28→20:23)
[2017-10-21] MEDS: FOLIC ACID 1 MG TABLET PO SCH (08:28)
[2017-10-21 15:00] VITALS: BP 108/57
[2017-10-21] MEDS ORDERED: WARFARIN SODIUM 1 MG TABLET PO SCH (17:00)
[2017-10-21] MEDS: WARFARIN SODIUM 5 MG TABLET PO SCH (18:00)
[2017-10-21] MEDS: PIOGLITAZONE HCL 15 MG TABLET PO SCH (20:23)
[2017-10-21 20:49] VITALS: BP 121/74
[2017-10-22] MEDS: ACETAMINOPHEN 325 MG TABLET PO PRN ×3 (00:50→17:02)
[2017-10-22] MEDS: TEMAZEPAM 7.5 MG CAPSULE PO PRN (00:54)
[2017-10-22] MEDS: HYDROCODONE/APAP 5-325MG TABLET PO PRN ×2 (05:37→20:21)
[2017-10-22] MEDS: BLOOD SUGAR DIAGNOSTIC 1 EACH STRIP VI SCH ×4 (06:47→20:20)
--- NOTE | 2017-10-22 06:49 | NUR ---
RECEIVED Pt AWAKE IN BED. A+Ox2, POOR INSIGHT INTO REASON FOR ADMISSION AND HOSPITALIZATION. Pt STATED, "I DON'T KNOW" WHEN ASKED WHAT BROUGHT HIM TO THE HOSPITAL. Pt Pt DENIES HEARING VOICES "TODAY", BUT STATES HE HEARS THEM "SOMETIMES" Pt STATES THE VOICES TELL HIM TO KILL HIMSELF. Pt DOES CFS, BUT APPEARS UNRELIABLE FOR SAFETY AT THIS TIME, REMAINS ON Q 15 HEAD CHECKS. Pt EXHIBITS PRESSURED SPEECH AND BLUNTED AFFECT. Pt REMAINS SECLUSIVE TO HIS ROOM AND ISOLATIVE TO HIMSELF, APPEARS INTERNALLY PREOCCUPIED, CIRCUMSTANTIAL IN THOUGHT PROCESS. Pt COMPLIANT WITH MEDS AND COOPERATIVE WITH STAFF DIRECTION. Pt C/O CHRONIC BACK PAIN, NORCO 5.325 ADMINISTERED AT 2022 AND TYLENOL 650mg ADMINISTERED AT 49, BOTH WITH MODERATE EFFECT. Pt STATED HE WAS HAVING DIFFICULTY SLEEPING, REQUESTED SLEEP MED. RESTORIL 7.5mg ADMINISTERED, EFFECTIVE. HS BG 122, NO COVERAGE PER SS. NO AGGRESSIVE OR COMBATIVE BEHAVIORS. SHOWERED THIS MORNING. AMBG 114.
[2017-10-22 07:30] VITALS: BP 117/79
[2017-10-22] MEDS: FOLIC ACID 1 MG TABLET PO SCH (08:16)
[2017-10-22] MEDS: DULOXETINE 30 MG CAPSULE.DR PO SCH (08:16)
[2017-10-22] MEDS: FAMOTIDINE 20 MG TABLET PO SCH (08:16)
[2017-10-22] MEDS: risperiDONE 2 MG TABLET PO SCH ×2 (08:16→20:20)
[2017-10-22] MEDS: BENZTROPINE MESYLATE 0.5 MG TABLET PO SCH ×2 (08:16→17:01)
[2017-10-22] MEDS: NICOTINE 21 MG/24HR PATCH TD SCH (08:16)
[2017-10-22 15:00] VITALS: BP 102/63
[2017-10-22] MEDS: INSULIN REGULAR, HUMAN 300 UNIT/3 ML VIAL SQ PRN (16:55)
[2017-10-22] MEDS: WARFARIN SODIUM 5 MG TABLET PO SCH (17:02)
[2017-10-22 19:30] VITALS: BP 116/70
[2017-10-22] MEDS: PIOGLITAZONE HCL 15 MG TABLET PO SCH (20:20)
--- NOTE | 2017-10-22 21:55 | NUR ---
Received patient in his bed. He is A/O x2. and able to make his needs know. Depressed mood noted. He remains in his room most of the time. poor insight. However, he denies AH/VA at this time. He denies thought to harm self. No aggressive Bx. noted or reported at this time. Patient c/o lower back pain 8/10 in the pain intensity scale. [place] 5/325mg was given at 2020. Reassessed at 2129, he stated, "is better". will continue to monitor.
[2017-10-23] MEDS: TEMAZEPAM 7.5 MG CAPSULE PO PRN ×2 (00:19→22:55)
--- NOTE | 2017-10-23 00:24 | NUR ---
Pt c/o unable to fall asleep. Temazepam 7.5mg PO PRN was given for insomnia. V/S prior to medication administration were: B/P 113/78mmHg, pulse 68bpm, respiration 18 breaths/min and SPO2 98%. will continue to monitor.
[2017-10-23] MEDS: HYDROCODONE/APAP 5-325MG TABLET PO PRN ×3 (04:11→20:30)
--- NOTE | 2017-10-23 06:48 | NUR ---
PATIENT SLEPT FOR APPROX 1.15HRS THROUGH THE NIGHT. NO AGGRESSIVE BX, NO AH OR VH NOTED DURING THE SHIFT.
[2017-10-23] MEDS: BLOOD SUGAR DIAGNOSTIC 1 EACH STRIP VI SCH ×4 (06:51→20:39)
[2017-10-23 07:30] VITALS: BP 119/68
[2017-10-23] MEDS: FAMOTIDINE 20 MG TABLET PO SCH (08:41)
[2017-10-23] MEDS: NICOTINE 21 MG/24HR PATCH TD SCH (08:41)
[2017-10-23] MEDS: BENZTROPINE MESYLATE 0.5 MG TABLET PO SCH ×2 (08:41→16:36)
[2017-10-23] MEDS: FOLIC ACID 1 MG TABLET PO SCH (08:42)
[2017-10-23] MEDS: ACETAMINOPHEN 325 MG TABLET PO PRN ×3 (08:42→23:10)
[2017-10-23] MEDS: DULOXETINE 30 MG CAPSULE.DR PO SCH (08:42)
[2017-10-23] MEDS: risperiDONE 2 MG TABLET PO SCH (08:42)
[2017-10-23] MEDS: INSULIN REGULAR, HUMAN 300 UNIT/3 ML VIAL SQ PRN ×2 (11:55→16:47)
[2017-10-23 16:16] VITALS: BP 136/76
[2017-10-23] MEDS: WARFARIN SODIUM 5 MG TABLET PO SCH (16:37)
[2017-10-23] MEDS: WARFARIN SODIUM 1 MG TABLET PO SCH (16:40)
[2017-10-23] MEDS: risperiDONE 1 MG TABLET PO SCH (20:30)
[2017-10-23] MEDS: PIOGLITAZONE HCL 15 MG TABLET PO SCH (20:30)
[2017-10-23] MEDS ORDERED: risperiDONE 2 MG TABLET PO SCH (21:00)
[2017-10-23 21:30] VITALS: BP 121/83
--- NOTE | 2017-10-23 22:00 | NUR ---
received to care, lying in bed, isolative, but pleasant upon approach. no interactions with peers. compliant with medications and staff direction. PRN tylenol given at 2029 for lower back pain 06/15. as of 2199, he reports good relief, 2/, and appears to be falling asleep. no distress noted. will continue to monitor closely.
--- NOTE | 2017-10-23 22:55 | NUR ---
PRN restoril given for insomnia
[2017-10-24] MEDS: HYDROCODONE/APAP 5-325MG TABLET PO PRN ×3 (02:06→17:08)
--- NOTE | 2017-10-24 02:06 | NUR ---
pt has been awake, and restless. PRN norco given for 8/10 lower back pain.
[2017-10-24] MEDS: ACETAMINOPHEN 325 MG TABLET PO PRN ×3 (06:16→20:05)
[2017-10-24] MEDS: BLOOD SUGAR DIAGNOSTIC 1 EACH STRIP VI SCH ×4 (07:29→20:20)
[2017-10-24 07:30] VITALS: BP 121/78
[2017-10-24] MEDS: DULOXETINE 30 MG CAPSULE.DR PO SCH (08:50)
[2017-10-24] MEDS: FOLIC ACID 1 MG TABLET PO SCH (08:50)
[2017-10-24] MEDS: risperiDONE 1 MG TABLET PO SCH ×2 (08:50→20:05)
[2017-10-24] MEDS: NICOTINE 21 MG/24HR PATCH TD SCH (08:50)
[2017-10-24] MEDS: BENZTROPINE MESYLATE 0.5 MG TABLET PO SCH ×2 (08:50→16:56)
[2017-10-24] MEDS: FAMOTIDINE 20 MG TABLET PO SCH (08:50)
[2017-10-24] MEDS: WARFARIN SODIUM 1 MG TABLET PO SCH (16:55)
[2017-10-24] MEDS: WARFARIN SODIUM 5 MG TABLET PO SCH (16:56)
[2017-10-24] MEDS: INSULIN REGULAR, HUMAN 300 UNIT/3 ML VIAL SQ PRN (16:57)
[2017-10-24 17:00] VITALS: BP 138/80
[2017-10-24] MEDS: PIOGLITAZONE HCL 15 MG TABLET PO SCH (20:05)
[2017-10-24] MEDS: TEMAZEPAM 7.5 MG CAPSULE PO PRN (21:31)
--- NOTE | 2017-10-24 22:00 | NUR ---
received to care, lying in bed, isolative, but pleasant upon approach. no interactions with peers. compliant with medications and staff direction. PRN tylenol given at 2004 for lower back pain 05/15. as of 2199, he reports good relief, 01/13. PRN restoril was given at 2130, for insomnia. as of 2199, he remains awake, and slightly needy, and restless. no distress noted. emotional support provided. will continue to monitor closely.
--- NOTE | 2017-10-24 22:39 | NUR ---
remains awake. states there are "gunmen" in his room. reality orientation/emotional support provided. RAJI mcpherson was given. currently sitting at the nurses drinking some decaf tea. will continue to monitor closely.
[2017-10-25] MEDS: HYDROCODONE/APAP 5-325MG TABLET PO PRN ×4 (00:14→20:11)
--- NOTE | 2017-10-25 00:15 | NUR ---
appears calmer, now. PRN norco given for 8/10 low back pain, and he went back to bed. will continue to monitor closely.
[2017-10-25] MEDS: ACETAMINOPHEN 325 MG TABLET PO PRN ×3 (02:31→22:17)
--- NOTE | 2017-10-25 04:00 | NUR ---
remains awake, and restless. continues to come out of his room, every few minutes, stating that "people" are in his bed. also believes gangmembers are looking for him. difficult to orient to reality. also continues to talk to self. appears distracted by internal stimuli. redirected back to his room. currently talking to self, lying in bed. will continue to monitor closely.
--- NOTE | 2017-10-25 06:27 | NUR ---
did not sleep at all. currently at nurses station. speech is more appropriate, butr he does allude to hearing voices. he stated that they are telling him "its a good day to " emotional support and reality orientation was provided. PRN norco was given at this time, for 8/10 back pain. currently sitting at nurses station. no distress noted. will continue to monitor closely.
[2017-10-25 07:30] VITALS: BP 135/81
[2017-10-25] MEDS: BLOOD SUGAR DIAGNOSTIC 1 EACH STRIP VI SCH ×4 (07:32→21:01)
[2017-10-25 08:26] LABS: BASOPHILS % (AUTO) 0.6 % (0.0-2.0); EOSINOPHILS # (AUTO) 0.2 K/uL (0.0-0.7); EOSINOPHILS % (AUTO) 3.6 % (0.0-7.0); HEMATOCRIT 41.3 % (36.7-47.1); HEMOGLOBIN 14.2 g/dL (12.5-16.3); LYMPHOCYTES # (AUTO) 2.5 K/uL (20.0-40.0); LYMPHOCYTES % (AUTO) 39.5 % (20.5-51.5); MEAN CORPUSCULAR HEMOGLOBIN 33.7 uug (23.8-33.4); MEAN CORPUSCULAR HGB CONC 34 g/dL (32.5-36.3); MEAN CORPUSCULAR VOLUME 98.1 fL (73.0-96.2); MONOCYTES # (AUTO) 0.6 K/uL (2.0-10.0); MONOCYTES % (AUTO) 9.4 % (0.0-11.0); NEUTROPHILS % (AUTO) 46.9 % (38.5-71.5); PLATELET COUNT (AUTO) 170 K/uL (152-348); RED BLOOD CELL COUNT(AUTO) 4.21 MIL/uL (4.06-5.63); WHITE BLOOD COUNT (AUTO) 6.3 K/uL (3.6-10.2)
[2017-10-25] MEDS: FOLIC ACID 1 MG TABLET PO SCH (08:38)
[2017-10-25] MEDS: risperiDONE 1 MG TABLET PO SCH ×2 (08:38→20:11)
[2017-10-25] MEDS: BENZTROPINE MESYLATE 0.5 MG TABLET PO SCH ×2 (08:38→16:49)
[2017-10-25] MEDS: DULOXETINE 30 MG CAPSULE.DR PO SCH (08:39)
[2017-10-25] MEDS: NICOTINE 21 MG/24HR PATCH TD SCH (08:39)
[2017-10-25] MEDS: FAMOTIDINE 20 MG TABLET PO SCH (08:39)
[2017-10-25 09:31] LABS: BILIRUBIN,TOTAL 0.4 mg/dL (0.2-1.0); CREATININE 0.7 mg/dL (0.6-1.3); MAGNESIUM 1.8 mg/dL (1.8-2.4); PHOSPHOROUS 3.2 mg/dL (2.5-4.9); POTASSIUM 3.9 mmol/L (3.5-5.1); TOTAL PROTEIN, SERUM 7.5 g/dL (6.4-8.2)
[2017-10-25 16:00] VITALS: BP 153/80
[2017-10-25] MEDS: WARFARIN SODIUM 5 MG TABLET PO SCH (16:50)
[2017-10-25] MEDS: PIOGLITAZONE HCL 15 MG TABLET PO SCH (20:11)
[2017-10-25 20:35] VITALS: BP 123/71
[2017-10-25] MEDS: INSULIN REGULAR, HUMAN 300 UNIT/3 ML VIAL SQ PRN (21:04)
--- NOTE | 2017-10-25 22:00 | NUR ---
received to care, pleasant and appropriate upon approach. compliant with medications and staff direction. PRN norco given at 2010, for lower back pain, with good results. denies SI, but admits to hearing voices telling him that "its a good day to " he states he is hopeful that the dosage adjustment on his meds will manage the voices. emotional support provided. as of 2199, he appears to be asleep, in bed. no distress noted. will continue to monitor closely.
--- NOTE | 2017-10-26 06:00 | NUR ---
slept 7.5 hours. no distress noted.
[2017-10-26] MEDS: ACETAMINOPHEN 325 MG TABLET PO PRN ×2 (06:10→16:49)
[2017-10-26] MEDS: BLOOD SUGAR DIAGNOSTIC 1 EACH STRIP VI SCH ×4 (06:43→20:24)
[2017-10-26 07:30] VITALS: BP 116/74
[2017-10-26] MEDS: NICOTINE 21 MG/24HR PATCH TD SCH (08:18)
[2017-10-26] MEDS: FOLIC ACID 1 MG TABLET PO SCH (08:19)
[2017-10-26] MEDS: DULOXETINE 30 MG CAPSULE.DR PO SCH (08:19)
[2017-10-26] MEDS: FAMOTIDINE 20 MG TABLET PO SCH (08:19)
[2017-10-26] MEDS: BENZTROPINE MESYLATE 0.5 MG TABLET PO SCH ×2 (08:19→16:14)
[2017-10-26] MEDS: risperiDONE 1 MG TABLET PO SCH ×2 (08:19→21:16)
[2017-10-26] MEDS: HYDROCODONE/APAP 5-325MG TABLET PO PRN ×3 (08:20→19:44)
[2017-10-26 15:52] VITALS: BP 110/73
--- NOTE | 2017-10-26 16:00 | NUR ---
Gps/Drain Tile Machine Operator- Brought in front of the Nurses station to have ankle bracelet charge. Stayed sitting up on his wheel chair.Sleeping on and off.
[2017-10-26] MEDS: INSULIN REGULAR, HUMAN 300 UNIT/3 ML VIAL SQ PRN (16:44)
[2017-10-26 20:00] VITALS: BP 110/60
[2017-10-26] MEDS: PIOGLITAZONE HCL 15 MG TABLET PO SCH (21:16)
[2017-10-27] MEDS: ACETAMINOPHEN 325 MG TABLET PO PRN ×3 (05:33→21:13)
[2017-10-27] MEDS: BLOOD SUGAR DIAGNOSTIC 1 EACH STRIP VI SCH ×4 (06:52→21:00)
[2017-10-27 07:30] VITALS: BP 109/63
[2017-10-27] MEDS: FOLIC ACID 1 MG TABLET PO SCH (08:07)
[2017-10-27] MEDS: risperiDONE 1 MG TABLET PO SCH ×2 (08:07→21:00)
[2017-10-27] MEDS: NICOTINE 21 MG/24HR PATCH TD SCH (08:07)
[2017-10-27] MEDS: DULOXETINE 30 MG CAPSULE.DR PO SCH (08:07)
[2017-10-27] MEDS: BENZTROPINE MESYLATE 0.5 MG TABLET PO SCH ×2 (08:08→16:34)
[2017-10-27] MEDS: FAMOTIDINE 20 MG TABLET PO SCH (08:08)
[2017-10-27] MEDS ORDERED: NICOTINE 14 MG/24HR PATCH TD SCH (09:00)
[2017-10-27 15:00] VITALS: BP 102/75
--- NOTE | 2017-10-27 16:31 | NUR ---
Monday DC Note: Patient will be discharged to [facility] [[address] [place] [address]; ] via ambulance at 12pm. HELEN spoke with Tim at [facility] to confirm discharge plans. HELEN spoke with patient's financial administration officer Adolph Joslyn [[phone]] who is aware and agreeable to discharge plans. Patient will follow up with Dr. Betancur (Boiler Erector) and Dr. Torres (Psychiatrist).
--- NOTE | 2017-10-27 17:30 | NUR ---
Gps/Pack Mule Worker- Right ankle bracelet was charged by the Nurses station.When patient tried to stand up to go back to her room, lost his balance and ends up on the floor. Denies pain, no discomfort noted. Ambulated back to his room with front wheel walker. Vital signs stable. Safety continue to review with patient and emphasized. Patient verbalized understanding.
[2017-10-27 20:25] VITALS: BP 112/70
[2017-10-27] MEDS: PIOGLITAZONE HCL 15 MG TABLET PO SCH (20:59)
[2017-10-27] MEDS: INSULIN REGULAR, HUMAN 300 UNIT/3 ML VIAL SQ PRN (21:12)
[2017-10-28] MEDS: HYDROCODONE/APAP 5-325MG TABLET PO PRN (00:29)
[2017-10-28] MEDS: ACETAMINOPHEN 325 MG TABLET PO PRN (06:34)
[2017-10-28] MEDS: BLOOD SUGAR DIAGNOSTIC 1 EACH STRIP VI SCH (06:56)
[2017-10-28 07:32] VITALS: BP 105/67
[2017-10-28 07:50] LABS: BASOPHILS % (AUTO) 0.5 % (0.0-2.0); EOSINOPHILS # (AUTO) 0.3 K/uL (0.0-0.7); EOSINOPHILS % (AUTO) 3.7 % (0.0-7.0); HEMATOCRIT 41.9 % (36.7-47.1); HEMOGLOBIN 14.3 g/dL (12.5-16.3); LYMPHOCYTES # (AUTO) 3.3 K/uL (20.0-40.0); LYMPHOCYTES % (AUTO) 46.4 % (20.5-51.5); MEAN CORPUSCULAR HEMOGLOBIN 33.5 uug (23.8-33.4); MEAN CORPUSCULAR HGB CONC 34 g/dL (32.5-36.3); MEAN CORPUSCULAR VOLUME 98.2 fL (73.0-96.2); MONOCYTES # (AUTO) 0.5 K/uL (2.0-10.0); NEUTROPHILS % (AUTO) 42.4 % (38.5-71.5); PLATELET COUNT (AUTO) 173 K/uL (152-348); RED BLOOD CELL COUNT(AUTO) 4.27 MIL/uL (4.06-5.63); WHITE BLOOD COUNT (AUTO) 7.1 K/uL (3.6-10.2)
[2017-10-28 08:10] LABS: BILIRUBIN,TOTAL 0.5 mg/dL (0.2-1.0); CREATININE 0.7 mg/dL (0.6-1.3); MAGNESIUM 1.8 mg/dL (1.8-2.4); PHOSPHOROUS 3.2 mg/dL (2.5-4.9); POTASSIUM 3.6 mmol/L (3.5-5.1); TOTAL PROTEIN, SERUM 7.2 g/dL (6.4-8.2)
[2017-10-28] MEDS: FAMOTIDINE 20 MG TABLET PO SCH (08:18)
[2017-10-28] MEDS: DULOXETINE 30 MG CAPSULE.DR PO SCH (08:18)
[2017-10-28] MEDS: BENZTROPINE MESYLATE 0.5 MG TABLET PO SCH (08:19)
[2017-10-28] MEDS: risperiDONE 1 MG TABLET PO SCH (08:19)
[2017-10-28] MEDS: NICOTINE 21 MG/24HR PATCH TD SCH (08:19)
[2017-10-28] MEDS: FOLIC ACID 1 MG TABLET PO SCH (08:19)
--- NOTE | 2017-10-28 09:44 | NUR ---
Gps/Sewing Machine Operator-Called [facility] Report given to Nurse Bah. Patient was well informed of the dc. plan today. Right ankle bracelet was charged. All belongings given back to patient including 2 chargers for his ankle bracelet. No compliants noted. Patient in good spirit.
--- NOTE | 2017-10-28 11:15 | NUR ---
Gps/Hatchery Manager- Kitty Felix COSMETICS DEMONSTRATOR in to see patient, orders made ,Coumadin 2 mg. today and protime in am. Called [facility] informed dose of coumadin 2 mg po today , spoked to Niurka Harris( [phone])
--- NOTE | 2017-10-28 11:20 | NUR ---
Gps/Financial Analysis Advisor- Discharged to [facility] via ambulance.No complaints, no distress.Patient in good spirit.
[2017-10-28] MEDS ORDERED: WARFARIN SODIUM 2 MG TABLET PO SCH (17:00)
== END 2017-10-28 11:30 | DRG 885 ==
LOC: ER 19:57 → GPS 21:45
PROVIDERS: ADMIT Psychiatry & Neurology Psychiatry; ATTEND Internal Medicine
DX: F25.0 Schizoaffective disorder, bipolar type (principal); E11.65 Type 2 diabetes mellitus with hyperglycemia; D68.59 Other primary thrombophilia; I48.91 Unspecified atrial fibrillation; I08.3 Combined rheumatic disorders of mitral, aortic and tricuspid valves; J98.11 Atelectasis; Z79.4 Long term (current) use of insulin; Z79.01 Long term (current) use of anticoagulants; G89.29 Other chronic pain; M19.90 Unspecified osteoarthritis, unspecified site; F17.210 Nicotine dependence, cigarettes, uncomplicated; M54.9 Dorsalgia, unspecified; Z87.440 Personal history of urinary (tract) infections; Z86.19 Personal history of other infectious and parasitic diseases; E78.00 Pure hypercholesterolemia, unspecified; E53.8 Deficiency of other specified B group vitamins; F41.9 Anxiety disorder, unspecified; Z79.84 Long term (current) use of oral hypoglycemic drugs; Z79.899 Other long term (current) drug therapy; I70.0 Atherosclerosis of aorta
CPT/HCPCS: 36415; 71010; 80307; 83735; 84100; 84443; 85025; 85610; 85730; 93005; A4663; G0480; J1815

== ENCOUNTER 2017-11-14 18:47 | Inpatient (IN) | payer MEDICARE, OTHER ==
[~2017-11-14] VITALS: Ht 175.3 cm; Wt 88.0 kg
[~2017-11-14 18:47] MED LIST changes: +BISA10SU61 RC; -CARV6.252 PO; -CEPH500C2 PO; +CRAN300T PO; +NA P133E RC; -NICO1PAT28 TD; -PARO20TA7 PO; -RISP1SOL PO; +RISP2TAB23 PO
[2017-11-14 20:18] LABS: BASOPHILS % (AUTO) 0.5 % (0.0-2.0); EOSINOPHILS % (AUTO) 0.1 % (0.0-7.0); HEMATOCRIT 40.3 % (36.7-47.1); HEMOGLOBIN 14.2 g/dL (12.5-16.3); LYMPHOCYTES # (AUTO) 1.3 K/uL (20.0-40.0); LYMPHOCYTES % (AUTO) 44.1 % (20.5-51.5); MEAN CORPUSCULAR HGB CONC 35 g/dL (32.5-36.3); MEAN CORPUSCULAR VOLUME 96.3 fL (73.0-96.2); MONOCYTES # (AUTO) 0.4 K/uL (2.0-10.0); MONOCYTES % (AUTO) 15.1 % (0.0-11.0); NEUTROPHILS # (AUTO) 1.2 K/uL (1.8-8.9); NEUTROPHILS % (AUTO) 40.2 % (38.5-71.5); PLATELET COUNT (AUTO) 143 K/uL (152-348); RED BLOOD CELL COUNT(AUTO) 4.19 MIL/uL (4.06-5.63); WHITE BLOOD COUNT (AUTO) 2.9 K/uL (3.6-10.2)
[2017-11-14 20:23] LABS: ALANINE AMINOTRANSFERASE 40 U/L (16-63); ALKALINE PHOSPHATASE 88 U/L (50-136); ASPARTATE AMINOTRANSFERASE 22 U/L (15-37); BILIRUBIN,DIRECT 0.1 mg/dL (0.0-0.2); BILIRUBIN,TOTAL 0.2 mg/dL (0.2-1.0); CARBON DIOXIDE 26 mmol/L (21-32); CHLORIDE 100 mmol/L (98-107); CREATININE 0.8 mg/dL (0.6-1.3); GLUCOSE 191 mg/dL (74-106); POTASSIUM 3.5 mmol/L (3.5-5.1); TOTAL PROTEIN, SERUM 7.3 g/dL (6.4-8.2); UREA NITROGEN, BLOOD 16 mg/dL (7-18)
[2017-11-14 20:25] LABS: ETHANOL < 3 MG/DL (0-0)
[2017-11-14 20:26] LABS: ACETAMINOPHEN < 2.0 ug/mL (10-30)
[2017-11-14 20:31] LABS: NEUTROPHILS % (MANUAL) 0 % (42-75); THYROID STIMULATING HORMONE 1.475 mIU/mL (0.358-3.740)
--- NOTE | 2017-11-14 20:37 | NUR ---
BASSAM MEDINA FROM PET TEAM HERE TO EVAL PATIENT
--- NOTE | 2017-11-14 21:10 | NUR ---
BASSAM MEDINA PLACED PATIENT ON 5150 HOLD FOR DTS
--- NOTE | 2017-11-14 21:11 | NUR ---
MEDICALLY CLEARED BY DR PRICE
[2017-11-14 21:31] LABS: *BILIRUBIN,URIN NEGATIVE (NEGATIVE); *BLOOD, URINE Trace-intact (NEGATIVE); *CLARITY,URINE CLEAR (CLEAR); *COLOR,URINE YELLOW (YELLOW); *KETONES,URINE 2+ (NEGATIVE); *PROTEIN,URINE TRACE (NEGATIVE); *UROBILINOGEN,URINE 0.2 E.U./dl (NORMAL); LEUKOCYTE ESTERASE ,URINE NEGATIVE (NEGATIVE); NITRITE, URINE NEGATIVE (NEGATIVE); PH,URINE 5.5 (5.0-8.0); UGLUCOSE NEGATIVE (NEGATIVE)
[2017-11-14] MEDS ORDERED: RISP3TAB5 PO (21:34)
[2017-11-14] MEDS ORDERED: CLON0.5T PO (21:34)
[2017-11-14] MEDS ORDERED: OLAN5TAB3 PO (21:34)
[2017-11-14] MEDS ORDERED: LIDO30AD10 TD (21:34)
[2017-11-14] MEDS ORDERED: PIOG15TA8 PO (21:34)
[2017-11-14] MEDS ORDERED: NICO-671 TD (21:34)
[2017-11-14] MEDS ORDERED: DULO60CA45 PO (21:34)
[2017-11-14] MEDS ORDERED: TEMA7.5C PO (21:34)
[2017-11-14] MEDS ORDERED: COGENTIN PO (21:34)
[2017-11-14] MEDS ORDERED: WARF6TAB23 PO (21:34)
[2017-11-14] MEDS ORDERED: DIVA250T4 PO (21:34)
[2017-11-14] MEDS ORDERED: RISP4TAB4 PO (21:34)
[2017-11-14 21:50] VITALS: BP 129/79
[2017-11-14 21:50] LABS: BACTERIA,URINE FEW /HPF (NONE SEEN); RBC,URINE 0-3 /HPF (0-3); SQUAMOUS EPITHELIAL CELL,UR FEW /HPF (NONE SEEN); WBC,URINE 0-3 /HPF (0-3)
--- NOTE | 2017-11-14 21:50 | NUR ---
TRANSFERED TO [facility] VIA EMILY
[2017-11-14 21:54] LABS: *AMPHETAMINE, URINE NEGATIVE (NEGATIVE); *BARBITURATE, URINE NEGATIVE (NEGATIVE); *CANNABINOID, URINE POSITIVE (NEGATIVE); *COCCAINE, URINE NEGATIVE (NEGATIVE); *OPIATE, URINE POSITIVE (NEGATIVE); *PHENCYCLIDINE SCREEN,URINE NEGATIVE (NEGATIVE)
[2017-11-14] MEDS ORDERED: MAG HYDROX/AL HYDROX/SIMETH 30 ML LIQUID UDC PO PRN (22:15)
[2017-11-14] MEDS ORDERED: TEMAZEPAM 7.5 MG CAPSULE PO PRN (22:15)
[2017-11-14] MEDS ORDERED: MAGNESIUM HYDROXIDE 30 ML LIQUID UDC PO PRN (22:15)
[2017-11-14 22:30] VITALS: BP 129/79
--- NOTE | 2017-11-14 23:00 | NUR ---
received to care, on a 72 hour hold for danger to self, from the emergency room, a transfer from [facility]. according to the hold and chart, he was admitted today from [facility], where he had expressed suicidal ideations, that voices were telling him to hang himself, with a shirt. upon arrival at [facility], he expressed the same thoughts, so the crisis team placed him on a hold. he was admitted here last october, for the same reason. upon arrival, he denies currently hearing the voces, or wanting to hurt himself. he agreed to inform staff, if these feelings happen again. he was very malodorous and disheveled upon arrival, smelling of urine. he was assisted with a shower, and is now asleep, in the chair. will continue to monitor closely.
[2017-11-14] MEDS ORDERED: DEXTROSE 50% 50 ML DISP.SYRIN IV PRN (23:30)
[2017-11-14] MEDS ORDERED: LIDOCAINE 5% PATCH TD SCH (23:30)
[2017-11-14] MEDS ORDERED: BISACODYL 10 MG SUPP.RECT RC PRN (23:30)
[2017-11-14] MEDS ORDERED: FLEET ENEMA 133 ML BOTTLE RC PRN (23:30)
--- NOTE | 2017-11-15 00:10 | NUR ---
upon admission, pt had difficulty walking, and needed assistance to transfer from the chair to the toilet. when he was admitted here, last month, he was ambulating independently. he also appears sedated, and has a right sided facial droop, when asleep. Dr Bhatia was paged.
[2017-11-15] MEDS: ACETAMINOPHEN 325 MG TABLET PO PRN ×2 (00:25→17:29)
--- NOTE | 2017-11-15 00:25 | NUR ---
PRN tylenol given for lower back pain /10
--- NOTE | 2017-11-15 00:30 | NUR ---
new orders received, and carried out.
[2017-11-15] MEDS ORDERED: ACETAMINOPHEN 325 MG TABLET ONE (00:38)
--- NOTE | 2017-11-15 01:00 | NUR ---
pt was taken to radiology for stat CT scan of the head. pt was accompanied by [facility] staff.
--- NOTE | 2017-11-15 01:20 | NUR ---
pt has returned from CT.
[2017-11-15] MEDS ORDERED: CLONAZEPAM 0.5 MG TABLET PO PRN (01:30)
--- NOTE | 2017-11-15 02:00 | NUR ---
assisted to bed. appears to be asleep.
[2017-11-15] MEDS: HYDROCODONE/APAP 5-325MG TABLET PO PRN ×3 (04:19→20:00)
[2017-11-15] MEDS ORDERED: HYDROCODONE/APAP 5-325MG TABLET ONE (04:33)
[2017-11-15] MEDS: BLOOD SUGAR DIAGNOSTIC 1 EACH STRIP VI SCH ×4 (06:16→21:24)
--- NOTE | 2017-11-15 07:00 | NUR ---
slept well. is now awake. appears more alert. no facial droop noted.
[2017-11-15 08:00] VITALS: BP 112/69
[2017-11-15] MEDS: FOLIC ACID 1 MG TABLET PO SCH (08:51)
[2017-11-15] MEDS: NICOTINE 21 MG/24HR PATCH TD SCH (08:51)
[2017-11-15] MEDS: LIDOCAINE 5% PATCH TD SCH (08:52)
[2017-11-15] MEDS: INSULIN REGULAR, HUMAN 300 UNIT/3 ML VIAL SQ PRN ×3 (08:57→21:28)
[2017-11-15] MEDS ORDERED: Medication Not On Formulary EA (Warfarin Sodium (Coumadin) 6 MG) PO SCH (09:00)
--- NOTE | 2017-11-15 11:53 | NUR ---
Called for Cardiology consult per Dr. Alonzo requested.left massage in he's office.
[2017-11-15 16:00] VITALS: BP 139/80
[2017-11-15] MEDS: WARFARIN SODIUM 3 MG TABLET PO SCH (17:28)
[2017-11-15 20:26] VITALS: BP 128/77
[2017-11-15] MEDS: PIOGLITAZONE HCL 15 MG TABLET PO SCH (20:59)
[2017-11-15] MEDS: BENZTROPINE MESYLATE 1 MG TABLET PO SCH (20:59)
[2017-11-15] MEDS: risperiDONE 1 MG TABLET PO SCH (20:59)
[2017-11-15] MEDS: OLANZAPINE 5 MG TABLET PO SCH (21:00)
--- NOTE | 2017-11-15 22:00 | NUR ---
received to care, lying in bed, asleep, but easy to awaken, and pleasant upon approach. compliant with medications and staff direction. as of 2200, he appears to be asleep. no distress noted. will continue to monitor closely.
[2017-11-16] MEDS: ACETAMINOPHEN 325 MG TABLET PO PRN ×2 (05:20→16:51)
[2017-11-16] MEDS: BLOOD SUGAR DIAGNOSTIC 1 EACH STRIP VI SCH ×4 (05:57→20:46)
[2017-11-16 07:30] VITALS: BP 127/82
[2017-11-16] MEDS: INSULIN REGULAR, HUMAN 300 UNIT/3 ML VIAL SQ PRN ×3 (08:06→20:47)
[2017-11-16] MEDS: FOLIC ACID 1 MG TABLET PO SCH (08:09)
[2017-11-16] MEDS: risperiDONE 1 MG TABLET PO SCH ×2 (08:09→20:13)
[2017-11-16] MEDS: NICOTINE 21 MG/24HR PATCH TD SCH (08:09)
[2017-11-16] MEDS: LIDOCAINE 5% PATCH TD SCH (08:10)
[2017-11-16 08:42] LABS: BASOPHILS % (AUTO) 0.5 % (0.0-2.0); EOSINOPHILS % (AUTO) 0.1 % (0.0-7.0); HEMOGLOBIN 13.7 g/dL (12.5-16.3); LYMPHOCYTES # (AUTO) 1.9 K/uL (20.0-40.0); LYMPHOCYTES % (AUTO) 57.8 % (20.5-51.5); MEAN CORPUSCULAR HEMOGLOBIN 33.9 uug (23.8-33.4); MEAN CORPUSCULAR HGB CONC 35 g/dL (32.5-36.3); MEAN CORPUSCULAR VOLUME 96.1 fL (73.0-96.2); MONOCYTES # (AUTO) 0.5 K/uL (2.0-10.0); MONOCYTES % (AUTO) 14.1 % (0.0-11.0); NEUTROPHILS # (AUTO) 0.9 K/uL (1.8-8.9); NEUTROPHILS % (AUTO) 27.5 % (38.5-71.5); PLATELET COUNT (AUTO) 141 K/uL (152-348); RED BLOOD CELL COUNT(AUTO) 4.06 MIL/uL (4.06-5.63); WHITE BLOOD COUNT (AUTO) 3.3 K/uL (3.6-10.2)
[2017-11-16 09:20] LABS: ALANINE AMINOTRANSFERASE 32 U/L (16-63); ALKALINE PHOSPHATASE 78 U/L (50-136); ASPARTATE AMINOTRANSFERASE 19 U/L (15-37); BILIRUBIN,TOTAL 0.2 mg/dL (0.2-1.0); CARBON DIOXIDE 27 mmol/L (21-32); CHLORIDE 107 mmol/L (98-107); CREATININE 0.6 mg/dL (0.6-1.3); GLUCOSE 122 mg/dL (74-106); MAGNESIUM 1.8 mg/dL (1.8-2.4); PHOSPHOROUS 2.4 mg/dL (2.5-4.9); POTASSIUM 3.6 mmol/L (3.5-5.1); TOTAL PROTEIN, SERUM 7.2 g/dL (6.4-8.2); UREA NITROGEN, BLOOD 10 mg/dL (7-18)
[2017-11-16] MEDS: HYDROCODONE/APAP 5-325MG TABLET PO PRN ×2 (10:59→19:39)
[2017-11-16] MEDS ORDERED: NEUTRA PHOS PACKET PO ONE (11:30)
--- NOTE | 2017-11-16 12:30 | NUR ---
PHOSPHORUS LEVEL IS 2.3 WITH NEW ORDER FOR NEUTROPHOS REPLACEMENT AND NOTED.
[2017-11-16 15:00] VITALS: BP 123/77
[2017-11-16] MEDS ORDERED: GUAIFENESIN/DEXTROMETHORPHAN 5 ML UDC PO PRN (15:30)
--- NOTE | 2017-11-16 16:08 | NUR ---
PATIENT SEEN AND EXAMINED BY KENNEDY INGRAM WITH NEW ORDERS AND NOTED.PATIENT IS SITTING BY THE NURSES STATION CHARGING HIS ANKLE BRACELET.
[2017-11-16] MEDS: WARFARIN SODIUM 3 MG TABLET PO SCH (16:18)
--- NOTE | 2017-11-16 17:35 | NUR ---
CXR DONE ORDERED AND NASAL SWAB FOR THE INFLUENZA A AND B OBTAINED AND SENT TO THE LAB ORDERED.
[2017-11-16] MEDS: PIOGLITAZONE HCL 15 MG TABLET PO SCH (20:13)
[2017-11-16] MEDS: BENZTROPINE MESYLATE 1 MG TABLET PO SCH (20:14)
[2017-11-16] MEDS: OLANZAPINE 5 MG TABLET PO SCH (20:14)
[2017-11-16 21:10] VITALS: BP 114/62
--- NOTE | 2017-11-16 22:00 | NUR ---
received to care, lying in bed, asleep, but easy to awaken, and pleasant upon approach. compliant with medications and staff direction. PRN wilbert was given at 1938, for lower back pain 06/15. as of 2199, he appears to be asleep. no distress noted. will continue to monitor closely.
[2017-11-17] MEDS: ACETAMINOPHEN 325 MG TABLET PO PRN ×2 (03:19→08:32)
[2017-11-17] MEDS: BLOOD SUGAR DIAGNOSTIC 1 EACH STRIP VI SCH ×2 (06:24→11:34)
[2017-11-17 07:30] VITALS: BP 125/83
[2017-11-17] MEDS: INSULIN REGULAR, HUMAN 300 UNIT/3 ML VIAL SQ PRN ×2 (08:17→12:42)
[2017-11-17] MEDS: NICOTINE 21 MG/24HR PATCH TD SCH (08:31)
[2017-11-17] MEDS: risperiDONE 1 MG TABLET PO SCH (08:32)
[2017-11-17] MEDS: FOLIC ACID 1 MG TABLET PO SCH (08:32)
[2017-11-17] MEDS: LIDOCAINE 5% PATCH TD SCH (08:32)
--- NOTE | 2017-11-17 08:48 | NUR ---
DC Note: Patient will be discharged to [facility] [[address] [place] [address]; ] via private transportation at 1pm. HELEN spoke with William from [email or web address] [[phone]] who confirmed they will be providing transportation for the patient. HELEN spoke with Beata at [facility] to confirm discharge plans. Patient is aware and agreeable to discharge plans. Patient's tactical deception plans officer Adolph Jorgensen [[phone] ex [phone]] is aware and agreeable to discharge plans. Patient will follow up with Dr. Betancur (Trash Man) and Dr. Wiggins (Psychiatrist).
[2017-11-17] MEDS: HYDROCODONE/APAP 5-325MG TABLET PO PRN (11:29)
--- NOTE | 2017-11-17 13:00 | NUR ---
1230 cALLED [facility] SPOKE TO MARIAM THE NURSE AND REPORT GIVEN REGARDING PATIENT DIAGNOSIS, MEDIATION TO CONTINUE UPON DISCHARGED- NURSE. VERBALZED UNDERSTANDING.
== END 2017-11-17 13:05 | DRG 885 ==
LOC: ER 18:54 → GPS 21:39
PROVIDERS: ADMIT Psychiatry & Neurology Psychosomatic Medicine; ATTEND Internal Medicine
DX: F25.0 Schizoaffective disorder, bipolar type (principal); E44.0 Moderate protein-calorie malnutrition; E11.649 Type 2 diabetes mellitus with hypoglycemia without coma; D68.9 Coagulation defect, unspecified; D69.6 Thrombocytopenia, unspecified; E83.39 Other disorders of phosphorus metabolism; I48.0 Paroxysmal atrial fibrillation; I08.3 Combined rheumatic disorders of mitral, aortic and tricuspid valves; I45.2 Bifascicular block; D72.819 Decreased white blood cell count, unspecified; E78.5 Hyperlipidemia, unspecified; F41.9 Anxiety disorder, unspecified; Z79.4 Long term (current) use of insulin; Z79.01 Long term (current) use of anticoagulants; Z86.19 Personal history of other infectious and parasitic diseases; Z87.440 Personal history of urinary (tract) infections; Z68.28 Body mass index [BMI] 28.0-28.9, adult; E66.3 Overweight; E78.00 Pure hypercholesterolemia, unspecified; I10 Essential (primary) hypertension; G89.29 Other chronic pain; G47.00 Insomnia, unspecified; M19.90 Unspecified osteoarthritis, unspecified site; Z79.899 Other long term (current) drug therapy; Z79.84 Long term (current) use of oral hypoglycemic drugs; Z59.0 Homelessness; Z91.5 Personal history of self-harm; F17.210 Nicotine dependence, cigarettes, uncomplicated
CPT/HCPCS: 36415; 70450; 71045; 80307; 83735; 84100; 84443; 85025; 85610; 85730; 87400; 93005; 97116; 97530; A4663; G0480; G0480-TC; J1815